=== PATIENT | male | born 1995 | race American Indian/Alaskan Native ===

== ENCOUNTER 2019-12-14 09:54 | Emergency (ER) | payer SELFPAY ==
[2019-12-14] MEDS ORDERED: BACITRACIN ZINC OINT 28.4 GM TP STA (10:18)
[2019-12-14] MEDS ORDERED: SODIUM CHLORIDE 0.9% 1000 ML 1,000 ML IV ONE (10:18)
[2019-12-14] MEDS ORDERED: MORPHINE 4 MG/1 ML INJ IV ONE (10:18)
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
[2019-12-14 10:59] LABS: Hematocrit 54.1 % (35.5-45.6); Hemoglobin 18.6 gm/dl (11.8-15.2); Mean Corpuscular HGB Conc 35 % (32-34); Mean Corpuscular Volume 88 fl (84-94); Red Blood Count 6.18 M/mm3 (3.65-5.03); Red Cell Distribution Width 13.7 % (13.2-15.2)
[2019-12-14 11:15] LABS: INR 1.22 (0.87-1.13)
[2019-12-14 11:17] LABS: Platelet Count 191 K/mm3 (140-440)
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
[2019-12-14 11:40] LABS: Alanine Aminotransferase 22 units/L (7-56); Albumin 4.6 g/dL (3.9-5); BUN/Creatinine Ratio 9; Blood Urea Nitrogen 13 mg/dL (9-20); Calcium 10.2 mg/dL (8.4-10.2); Hemolysis Index 15
--- NOTE | 2019-12-14 11:40 | XRay Report ---
RIGHT HAND 3 VIEWS INDICATION / CLINICAL INFORMATION: Right hand pain COMPARISON: None available. FINDINGS: BONES / JOINT(S): No acute fracture or subluxation. No significant arthritis. SOFT TISSUES: No significant abnormality. ADDITIONAL FINDINGS: None. Signer Name: Serge Pina MD Signed: 12/14/2019 11:35 AM Workstation Name: [id number]
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
[2019-12-14] MEDS ORDERED: KETOROLAC 30 MG/1 ML INJ IV ONE (12:22)
[2019-12-14 13:48] VITALS: BP 109/64
== END 2019-12-14 13:49 | disposition home or self-care (01) ==
LOC: ED 09:54
DX: S92.331A Displaced fracture of third metatarsal bone, right foot, initial encounter for closed fracture (principal); S60.511A Abrasion of right hand, initial encounter; S09.90XA Unspecified injury of head, initial encounter; Z79.899 Other long term (current) drug therapy; V03.90XA Pedestrian on foot injured in collision with car, pick-up truck or van, unspecified whether traffic or nontraffic accident, initial encounter; Y93.89 Activity, other specified; Y92.410 Unspecified street and highway as the place of occurrence of the external cause; Y99.8 Other external cause status
CPT/HCPCS: 36415; 70450; 71045; 72170; 73130; 73590; 73610; 73630; 80053; 82550; 83735; 85027; 85610; 96374; 96375; 99285; J1885; J2270; J7030; 80320; G0480